=== PATIENT | female | born 1975 | race Two or more races ===

== ENCOUNTER 2021-03-02 21:33 | Emergency (ER) | payer MEDICAID, OTHER ==
[~2021-03-02] VITALS: Ht 157.5 cm; Wt 61.2 kg
[2021-03-02 22:20] VITALS: BP 144/76
== END 2021-03-03 02:04 | disposition left against medical advice (07) ==
LOC: EDBD 21:33 → EDUNIT# 21:33 → ER 21:40
DX: R07.9 Chest pain, unspecified (principal); M54.6 Pain in thoracic spine; V43.52XA Car driver injured in collision with other type car in traffic accident, initial encounter; Y93.89 Activity, other specified; Y92.410 Unspecified street and highway as the place of occurrence of the external cause; Y99.8 Other external cause status
CPT/HCPCS: 70450; 71250; 72125; 74176; 93005

== ENCOUNTER 2024-01-14 16:36 | Emergency (ER) | payer MEDICAID ==
[~2024-01-14] VITALS: Ht 165.1 cm; Wt 70.4 kg
[2024-01-14] MEDS: KETOROLAC TROMETH 30 MG/ML 1ML VIAL IV ONE (17:00)
[2024-01-14] MEDS: SODIUM CHLORIDE 0.9% 1,000 ML IVB ONE (17:00)
[2024-01-14 17:38] LABS: Basophils # (auto) 0.1 10 ^3/uL (0-0.2); Basophils % (auto) 0.8 % (0.0-2.0); Eosinophils # (auto) 0.5 10 ^3/uL (0-0.8); Eosinophils % (auto) 5.9 % (0.0-7.0); Hematocrit 30.6 % (36.0-46.0); Hemoglobin 9.7 g/dL (12.2-16.2); Lymphocytes # (auto) 1.6 10 ^3/uL (0.4-5.4); Lymphocytes % (auto) 17.4 % (10.0-50.0); Mean Corpuscular Hemoglobin 26.1 pg (28.0-32.0); Mean Corpuscular Hgb Conc. 31.6 g/dL (32.0-36.0); Mean Corpuscular Volume 82.6 fL (80.0-100.0); Monocytes # (auto) 0.7 10 ^3/uL (0-1.3); Monocytes % (auto) 7.4 % (0.0-12.0); Neutrophils # (auto) 6.3 10 ^3/uL (1.6-8.6); Neutrophils % (auto) 68.5 % (37.0-80.0); Nucleated Red Blood Cells % 0.1 %; White Blood Cell 9.2 10^3/uL (4.4-10.8)
[2024-01-14 17:44] LABS: Alanine Aminotransferase 11 U/L (7-40); Albumin 3.3 g/dL (3.2-4.8); Alkaline Phosphatase 59 U/L (46-116); Anion Gap 8 (5-15); Aspartate Aminotransferase 14 U/L (13-40); BUN/Creatinine Ratio 9.7 (10.0-20.0); Blood Urea Nitrogen 7 mg/dL (9-23); Calcium 8.6 mg/dL (8.7-10.4); Carbon Dioxide 23 mmol/L (20-30); Chloride 109 mmol/L (98-107); Glucose 118 mg/dL (74-106); Magnesium 1.8 mg/dL (1.6-2.6); Potassium 3.7 mmol/L (3.5-5.1); Sodium 140 mmol/L (136-145)
[2024-01-14 17:45] LABS: Bilirubin, Total 0.2 mg/dL (0.2-1.0); Total Protein 5.7 g/dL (5.7-8.2)
[2024-01-14 18:02] VITALS: PULSE 81; RESP 18; O2SAT 96
[2024-01-14 19:24] LABS: INR 1.07 (0.9-1.15); Prothrombin Time 11.3 sec (9.3-11.8)
[2024-01-14 19:30] VITALS: PULSE 96; RESP 14; O2SAT 100
[2024-01-14 19:39] LABS: Partial Thromboplastin Time < 20.0 SEC (24.5-34.5)
[2024-01-14] MEDS: IOHEXOL 350 MG/ML 100ML IJ ONE (20:25)
[2024-01-14] MEDS ORDERED: CIPR-173 PO (21:53)
[2024-01-14] MEDS ORDERED: METR-344 PO (21:53)
[2024-01-14] MEDS ORDERED: NAP500T PO (21:53)
[2024-01-14] MEDS: metroNIDAZOLE 500MG/100ML 100 ML IV ONE (21:59)
[2024-01-14] MEDS: CIPROFLOXACIN 400MG/200ML 200 ML IV ONE (23:02)
[2024-01-14 23:58] VITALS: BP 123/62; PULSE 97; RESP 22; TEMP 98.2; O2SAT 99
== END 2024-01-14 23:59 | disposition home or self-care (01) ==
LOC: EDBD 16:36 → ER 16:36
DX: N20.0 Calculus of kidney (principal); R10.2 Pelvic and perineal pain; K52.9 Noninfective gastroenteritis and colitis, unspecified; D21.9 Benign neoplasm of connective and other soft tissue, unspecified; R55 Syncope and collapse; N83.202 Unspecified ovarian cyst, left side; N83.201 Unspecified ovarian cyst, right side; J45.909 Unspecified asthma, uncomplicated
CPT/HCPCS: 36415; 74177; 80053; 82962; 83735; 84702; 85025; 85610; 85730; 86850; 86900; 86901; 93005; 96361; 96365; 96367; 96375; 99285; J0744; J1885; J3490; J7030; Q9967

== ENCOUNTER 2024-03-02 16:57 | Emergency (ER) | payer MEDICAID ==
[~2024-03-02] VITALS: Ht 157.5 cm; Wt 68.1 kg
[~2024-03-02 16:57] MED LIST: CIPR-173 PO; METR-344 PO; NAP500T PO
[2024-03-02 17:25] VITALS: BP 130/78; PULSE 111; RESP 17; O2SAT 99
[2024-03-02 18:54] LABS: Basophils # (auto) 0.1 10 ^3/uL (0-0.2); Basophils % (auto) 1.3 % (0.0-2.0); Eosinophils # (auto) 0.6 10 ^3/uL (0-0.8); Eosinophils % (auto) 7.5 % (0.0-7.0); Hematocrit 36.7 % (36.0-46.0); Hemoglobin 11.5 g/dL (12.2-16.2); Lymphocytes # (auto) 1.8 10 ^3/uL (0.4-5.4); Lymphocytes % (auto) 24.4 % (10.0-50.0); Mean Corpuscular Hemoglobin 23.3 pg (28.0-32.0); Mean Corpuscular Hgb Conc. 31.3 g/dL (32.0-36.0); Mean Corpuscular Volume 74.4 fL (80.0-100.0); Monocytes # (auto) 0.8 10 ^3/uL (0-1.3); Monocytes % (auto) 10.7 % (0.0-12.0); Neutrophils # (auto) 4.2 10 ^3/uL (1.6-8.6); Neutrophils % (auto) 56.1 % (37.0-80.0); Nucleated Red Blood Cells % 0.1 %; Red Blood Cells 4.94 10^6/uL (4.0-5.20); Red Cell Distribution Width 18.3 % (11.8-14.3); White Blood Cell 7.5 10^3/uL (4.4-10.8)
[2024-03-02 19:12] LABS: Alanine Aminotransferase 14 U/L (7-40); Albumin 4.4 g/dL (3.2-4.8); Alkaline Phosphatase 76 U/L (46-116); Anion Gap 7 (5-15); Aspartate Aminotransferase 11 U/L (13-40); BUN/Creatinine Ratio 15.5 (10.0-20.0); Bilirubin, Total 0.2 mg/dL (0.2-1.0); Blood Urea Nitrogen 13 mg/dL (9-23); Calcium 9.7 mg/dL (8.5-10.1); Carbon Dioxide 23 mmol/L (20-30); Chloride 109 mmol/L (98-107); Glucose 94 mg/dL (74-106); Potassium 3.9 mmol/L (3.5-5.1); Sodium 139 mmol/L (136-145)
== END 2024-03-02 19:48 | disposition left against medical advice (07) ==
LOC: ER 16:57
DX: N92.0 Excessive and frequent menstruation with regular cycle (principal); R10.2 Pelvic and perineal pain; J45.909 Unspecified asthma, uncomplicated; Z79.899 Other long term (current) drug therapy
CPT/HCPCS: 36415; 80053; 84702; 85025